=== PATIENT | female | born 1945 | race Two or more races ===

== ENCOUNTER 2017-07-19 18:18 | Emergency (ER) | payer OTHER ==
[~2017-07-19] VITALS: Ht 157.5 cm; Wt 73.9 kg
[~2017-07-19 18:18] MED LIST: ASPIR 8181 MG; CLONAZEPAM0.5 MG; LEVOXYL25 MCG; LEXAPRO5 MG; SIMVASTATIN10 MG
== END 2017-07-19 22:43 | disposition home or self-care (01) ==
LOC: ER 18:18
DX: R51 Headache (principal)

== ENCOUNTER 2018-11-16 13:57 | Emergency (ER) | payer OTHER ==
[~2018-11-16] VITALS: Ht 157.5 cm; Wt 73.5 kg
[2018-11-16] MEDS ORDERED: LEVOXYL75 MCG (15:16)
== END 2018-11-16 18:45 | disposition home or self-care (01) ==
LOC: ER 13:57
DX: R42 Dizziness and giddiness (principal)

== ENCOUNTER 2023-10-17 09:08 | Emergency (ER) | payer OTHER ==
[~2023-10-17] VITALS: Ht 157.5 cm; Wt 72.6 kg
[~2023-10-17 09:08] MED LIST changes: +LEVOXYL75 MCG
[2023-10-17] MEDS ORDERED: KETOROLAC TROMETHAMINE 60 MG VIAL IM ONE ×2 (10:30→10:40)
[2023-10-17] MEDS ORDERED: ORPHENADRINE CITRATE 30 MG/ML AMPUL IM ONE (10:30)
[2023-10-17] MEDS ORDERED: NORFLEX100MG PO (10:32)
[2023-10-17] MEDS ORDERED: KETO10TA2 PO (10:32)
[2023-10-17] MEDS ORDERED: ORPHENADRINE CITRATE 30 MG/ML AMPUL ONE (10:40)
== END 2023-10-17 10:57 | disposition home or self-care (01) ==
LOC: ER 09:09
DX: S76.812A Strain of other specified muscles, fascia and tendons at thigh level, left thigh, initial encounter (principal)
CPT/HCPCS: 96372; 99282; J1885; J2360

== ENCOUNTER 2024-03-27 22:04 | Emergency (ER) | payer OTHER ==
[~2024-03-27] VITALS: Ht 157.5 cm; Wt 69.4 kg
[~2024-03-27 22:04] MED LIST changes: +KETO10TA2 PO; +NORFLEX100MG PO
[2024-03-27] MEDS ORDERED: NORVASC2.5 M1 PO (22:15)
== END 2024-03-28 05:00 | disposition home or self-care (01) ==
LOC: ER 22:07
DX: S00.12XA Contusion of left eyelid and periocular area, initial encounter (principal); I10 Essential (primary) hypertension

== ENCOUNTER 2024-08-23 20:28 | Emergency (ER) | payer OTHER ==
[~2024-08-23] VITALS: Ht 157.5 cm; Wt 65.8 kg
[~2024-08-23 20:28] MED LIST changes: +NORVASC2.5 M1 PO
[2024-08-23] MEDS ORDERED: KETOROLAC TROMETHAMINE 30 MG VIAL IV STA (23:16)
[2024-08-23] MEDS ORDERED: HYOSCYAMINE SULFATE 0.125 MG TAB.SUBL SL ONE (23:30)
[2024-08-24 00:06] LABS: BASO % 0.8 % (0.1-1.2); EOS # 0.41 (0.04-0.54); EOS % 3.4 % (0.7-7.0); LYMPH # 2.63 (1.18-3.74); LYMPH % 21.9 % (19.3-53.1); MEAN PLATELET VOLUME 10.60 fl (9.4-12.4); MONO # 1.25 (0.24-0.82); MONO % 10.4 % (4.7-12.5); NEUT # 7.57 (1.56-6.13); NEUT % 63.2 % (34.0-71.1); RED CELL DISTRIBUTION WIDTH 18.1 % (11.6-14.4)
[2024-08-24 00:20] LABS: INR 0.96
[2024-08-24 00:24] LABS: ALT/SGPT 17.0 U/L (12-78); AST/SGOT 18.0 U/L (15-37); BILIRUBIN TOTAL 0.27 mg/dL (0.3-1.2); BUN CREA RATIO 25.0 (7.0-25.0); CREATININE SERUM 0.79 mg/dL (0.55-1.02); GFR 69.85; GLOBULINA 4.3 G/DL (2.4-3.5); GLUCOSE FASTING 129.0 mg/dL (65-100); OSMOLALITY SERUM 289.0 MOSM/KG (275-295)
[2024-08-24] MEDS ORDERED: ANALPRAM HC 2.530 GM RECTAL (01:28)
[2024-08-24] MEDS ORDERED: TRAMADOL HCL 50 MG TABLET PO ONE (01:30)
== END 2024-08-24 01:42 | disposition home or self-care (01) ==
LOC: ER 21:12
DX: R10.32 Left lower quadrant pain (principal); K64.8 Other hemorrhoids; K57.30 Diverticulosis of large intestine without perforation or abscess without bleeding